=== PATIENT | male | born 1990 | race Caucasian/White ===

== ENCOUNTER 2019-10-12 00:55 | Emergency (ER) | payer SELFPAY ==
[~2019-10-12] VITALS: Ht 170.2 cm; Wt 103.9 kg
[2019-10-12 01:02] VITALS: BP 134/86
[2019-10-12] MEDS: KETOROLAC 30 MG/ML VIAL IM ONE (01:56)
[2019-10-12 02:00] VITALS: BP 134/86
== END 2019-10-12 02:04 | disposition home or self-care (01) ==
LOC: MED 00:55
DX: R10.84 Generalized abdominal pain (principal); R03.0 Elevated blood-pressure reading, without diagnosis of hypertension
CPT/HCPCS: 74018; 96372; 99283; J1885; Q0092